=== PATIENT | female | born 1965 | race Caucasian/White ===

== ENCOUNTER 2016-10-31 08:24 | Emergency (ER) | payer BC ==
[2016-10-31 08:32] VITALS: TEMP 97.5; BMI 42.5
[2016-10-31] MEDS ORDERED: KETOROLAC TROMETHAMINE 30 MG/1 ML VIAL IVPUSH ONE (09:10)
--- NOTE | 2016-10-31 09:20 | PDOC ---
History of Present Illness - General Stated Complaint: ABD PAIN Time Seen by Provider: 10/31/16 08:31 History Source: Patient Exam Limitations: No Limitations - History of Present Illness Travel History: No Initial Comments: 10/31/16 09:15 51-year-old female presents to the ED with gradually worsening left suprapubic pain that she describes as a sharp cramping pressure that causes more pain with movement and ambulation. Patient states pain began at a minimum while passing urine and moving her bowels. Patient states history of left ovarian cyst that then gradually worsening and is unsure if that is the cause of her discomfort. Patient states does not have her menses anymore and denies any urinary complaints, bowel complaints, recent injury, or sexual intercourse. Timing/Duration: reports: getting worse Quality: reports: moderate, cramping Abdominal Pain Onset Location: reports: suprapubic (left) Pain Radiation: reports: no radiation Aggravating Factors: improves with: Movement Alleviating Factors: improves with: Change in Position, Rest Past History - Past Medical History Allergies/Adverse Reactions: Allergies Allergy/AdvReac Type Severity Reaction Status Date / Time No Known Allergies Allergy Verified 10/31/16 08:32 Other medical history: none - Reproductive History LMP Normal: Yes Is Patient Now?: No - Psycho/Social/Smoking Cessation Hx Anxiety: No Suicidal Ideation: No Smoking History: Never smoked Have you smoked in the past 12 months: No Information on smoking cessation initiated: No Hx Alcohol Use: No Drug/Substance Use Hx: No Substance Use Type: None Patient Lives Alone: No Review of Systems - Review of Systems Able to Perform ROS?: Yes Constitutional: No: Symptoms Reported HEENTM: No: Symptoms Reported Respiratory: No: Symptoms reported Cardiac (ROS): No: Symptoms Reported ABD/GI: Yes: Abdominal cramping. No: Nausea : No: Symptoms Reported Musculoskeletal: No: Symptoms Reported Integumentary: No: Symptoms Reported Neurological: No: Symptoms reported *Physical Exam - Vital Signs Last Vital Signs Temp Pulse Resp BP Pulse Ox 97.5 F L 72 18 110/77 100 10/31/16 08:26 10/31/16 08:26 10/31/16 08:26 10/31/16 08:26 10/31/16 08:26 - Physical Exam General Appearance: Yes: Nourished, Appropriately Dressed. No: Apparent Distress Neck: positive: Supple Respiratory/Chest: positive: Lungs Clear, Normal Breath Sounds. negative: Respiratory Distress, Accessory Muscle Use Cardiovascular: positive: Regular Rhythm, Regular Rate. negative: Murmur Gastrointestinal/Abdominal: positive: Normal Bowel Sounds, Soft, Guarding (mild) , Tenderness (left suprapubic). negative: Distended Musculoskeletal: negative: CVA Tenderness Extremity: positive: Normal Capillary Refill. negative: Pedal Edema Integumentary: positive: Normal Color, Warm, Moist Neurologic: positive: Motor Strength 5/5 (ambulatory) ED Treatment Course - LABORATORY CBC & Chemistry Diagram: 10/31/16 09:09 10/31/16 09:09 - RADIOLOGY Radiology Studies Ordered: Category Date Time Status PELVIC / BLADDER US [US] Stat Ultrasound 10/31/16 09:09 Ordered TRANSVAGINAL ULTRASOUND US [US] Stat Ultrasound 10/31/16 09:10 Ordered Medical Decision Making - Medical Decision Making 10/31/16 09:22 Patient with gradually worsening left suprapubic pain that she states feels sharp pressure cramping. Patient with history of ovarian cyst and is in the process of having him reevaluated by her [employer] AUTHOR[employer]ER for possible surgical removal. Patient had tenderness to the left suprapubic area but also to the left periumbilical and left flank. Patient ordered for labs, urine, and ultrasound. Patient also ordered for for IV fluids and Toradol. 10/31/16 10:36 Laboratory Tests 10/31/16 10/31/16 10/31/16 09:09 09:09 09:09 WBC 6.4 Hgb 14.4 Hct 42.9 Plt Count 233 Neutrophils % 68.1 Sodium 141 Potassium 4.2 Chloride 105 Carbon Dioxide 24 Anion Gap 12 BUN 13 Creatinine 0.8 Random Glucose 95 Calcium 9.0 Total Bilirubin 0.5 AST 33 ALT 42 Alkaline Phosphatase 114 Total Protein 7.4 Albumin 3.8 Urine Ketones Negative Urine Nitrite Negative Ur Leukocyte Esterase Negative 10/31/16 10:37 Ultrasound shows no evidence of adnexal masses or free fluid collections. The uterus is measuring normal size with no masses seen. Patient will be reevaluated 10/31/16 10:43 Patient is currently asymptomatic and ambulating within the ER. Patient will be discharged home to follow-up with her PCP and recommended to rest. *DC/Admit/Observation/Transfer Diagnosis at time of Disposition: Suprapubic pain, acute - Discharge Dispostion Disposition: HOME Condition at time of disposition: Improved - Patient Instructions Printed Discharge Instructions: DI for Abdominal Pain-Adult Additional Instructions: Take Motrin or Tylenol for discomfort. Please follow-up with your PCP and discuss today's visit. If your symptoms worsen please come to the nearest ER. - Post Discharge Activity Work/School Note: Back to Work
[2016-10-31] MEDS ORDERED: KETOROLAC TROMETHAMINE 30 MG/1 ML VIAL ONE (09:22)
[2016-10-31 09:38] LABS: BASOPHIL 0.6 % (0-2.0); EOSINOPHIL 3.1 % (0-4.5); MCH 29.1 pg (25.7-33.7); MCHC 33.5 g/dl (32.0-36.0); MEAN PLT VOLUME 8.3 fl (7.5-11.1); NEUTROPHILS 68.1 % (42.8-82.8); PLATELET COUNT 233 K/MM3 (134-434); RDW 13.6 % (11.6-15.6); WHITE BLOOD COUNT 6.4 K/mm3 (4.0-10.0)
[2016-10-31 09:41] LABS: URINE APPEARANCE CLEAR; URINE BILIRUBIN NEGATIVE (NEGATIVE); URINE BLOOD NEGATIVE (NEGATIVE); URINE COLOR STRAW; URINE GLUCOSE (UA) NEGATIVE (NEGATIVE); URINE KETONE NEGATIVE (NEGATIVE); URINE LEUK ESTERASE NEGATIVE (NEGATIVE); URINE NITRITE NEGATIVE (NEGATIVE); URINE PROTEIN NEGATIVE (NEGATIVE); URINE UROBILINOGEN NEGATIVE E.U./dl (0.2-1.0)
[2016-10-31 10:07] LABS: ALBUMIN 3.8 g/dl (3.4-5.0); ANION GAP 12 (8-16); CO2 24 mmol/L (21-32); COCKROFT - GAULT 144.5765; CREATININE 0.8 mg/dL (0.55-1.02); GLUCOSE,RANDOM 95 mg/dL (74-106); SGPT/ALT 42 U/L (12-78)
[2016-10-31 10:09] LABS: ALK PHOS 114 U/L (45-117); BILIRUBIN,TOTAL 0.5 mg/dL (0.2-1.0); TOT PROT 7.4 g/dl (6.4-8.2)
[2016-10-31 10:12] LABS: SGOT/AST 33 U/L (15-37)
[2016-10-31 11:04] VITALS: BP 100/70; PULSE 70
== END 2016-10-31 11:04 | disposition home or self-care (01) ==
LOC: JER 08:24
PROC: 3E0233Z Introduction of Anti-inflammatory into Muscle, Percutaneous Approach (ICD-10-PCS; principal; 2016-10-31)
DX: R10.30 Lower abdominal pain, unspecified (principal)
CPT/HCPCS: 36415; 76830-TC; 76856-TC; 80053; 81003; 85025; 87086; 99282-25